=== PATIENT | female | born 1980 | race Hispanic/Latino ===

== ENCOUNTER → 2024-08-12 | Outpatient (CLI) | payer OTHER ==
--- NOTE | 2024-08-12 12:19 | HMCIMG ---
NM GASTRIC EMPTYING STUDY REASON: UNSPECIFIED ABDOMINAL PAIN. COMPARISON: None TECHNIQUE: Nuclear gastric emptying study was performed with 1.5 mCi of technetium tagged sulfur colloid with scrambled eggs through oral route. FINDINGS: T half of gastric emptying is 65 minutes. IMPRESSION: Normal gastric emptying with T half of 65 minutes.
== END | disposition home or self-care (01) ==
LOC: RAH 07:09
PROVIDERS: ATTEND Surgery
DX: K21.00 Gastro-esophageal reflux disease with esophagitis, without bleeding (principal); R11.0 Nausea; R10.9 Unspecified abdominal pain
CPT/HCPCS: 78264; A9541